=== PATIENT | male | born 1975 | race Caucasian/White ===

== ENCOUNTER 2016-07-29 18:45 | Inpatient (IN) | payer OTHER ==
--- NOTE | ~2016-07-29 | PN ---
Unit #: [id number] #: [id number] Patient: HERMINIA SAAVEDRA [id number] [facility] [address] [place] [address] [id number] MR#: [id number] NAME: HERMINIA SAAVEDRA ROOM: P256 Age: 40 Sex: M Admission Date: 07/29/2016 : 1975 Attending Physician: Juan Gtz M.D. Admitting Physician: Juan Gtz M.D. Primary Care Physician: Primary Care Physician Grace DODD PROGRESS NOTES DATE 07/31/2016 DISCUSSION The patient is calm and pleasant today. He is sleeping well and has been compliant with medications but seems to maintain the delusion that "the [employer] is living by his house." Whatever the case, the patient while exhibiting symptoms of delusional thinking does not appear to be an immediate danger to self or others and should he maintain progress we will likely have to discharge the patient with completion of his 72 hour hold. Dictated by... Juan Gtz M.D. CB/sherri TD: 07/31/2016 13:06 JOB #: [id number] JU PROGRESS NOTES X Juan Gtz MD PROGRESS NOTE
--- NOTE | ~2016-07-29 | HP ---
Unit #: [id number] #: [id number] Patient: GABRIEL SAAVEDRA [id number] [place] [address] [id number] I MR#: [id number] NAME: GABRIEL SAAVEDRA ROOM: P256 Age: 40 Sex: M Admission Date: 07/29/2016 : 1975 Attending Physician: Juan Gtz M.D. Admitting Physician: Juan Gtz M.D. Primary Care Physician: Primary Care Physician No HISTORY AND PHYSICAL HISTORY OF PRESENT ILLNESS Gabriel is a 40 year old admitted to [address] [place] [address] with depression and verbalizing wanting to hurt himself. PAST MEDICAL HISTORY Nothing significant. PAST SURGICAL HISTORY Nothing reported. ALLERGIES No known drug allergies. SOCIAL HISTORY He does not smoke. He has a history of alcohol and marijuana use. FAMILY HISTORY Medically noncontributory. REVIEW OF SYSTEMS CONSTITUTIONAL: No fever or chills. HEENT: Denies any sore throat, ear pain or runny nose. CARDIOVASCULAR: Denies chest pain, irregular heart rhythm or palpitations. CHEST: Denies shortness of breath or cough. No hemoptysis. GASTROINTESTINAL: Denies nausea, vomiting, diarrhea or chronic constipation. ENDOCRINE: Denies history of increased thirst or urination. No recent significant weight loss or gain. GENITOURINARY: Denies dysuria, frequency, or hematuria. SKIN: Denies any rashes. HEMATOLOGIC: Denies history of increased bleeding or bruising. MUSCULOSKELETAL: Denies any hot, swollen joints. No generalized muscle pain. NEUROLOGIC: Denies problems with vision or speech. No frequent, severe headaches. No numbness, tingling or weakness in any extremities. Denies loss of bladder or bowel control. CURRENT MEDICATIONS 1. Zyprexa 5 mg b.i.d., 10 mg q.h.s. 2. Milk of Magnesia p.r.n. 3. Maalox p.r.n. 4. Tylenol p.r.n. Unit #: [id number] #: [id number] Patient: GABRIEL SAAVEDRA PHYSICAL EXAMINATION GENERAL: Alert, well-nourished, in no apparent distress. VITAL SIGNS: Blood pressure 130/68, heart rate 90, respirations 16, temperature 98.6. WEIGHT: 220 pounds. HEIGHT: 6'0". SKIN: Warm and dry without rash or lesion. HEENT: Normocephalic. TMs not viewed. Oral and nasal passages clear. Conjunctivae clear. Pupils equal, round and reactive to light and accommodation. Extraocular movements intact. NECK: Supple without lymphadenopathy or thyromegaly. HEART: Regular rate and rhythm without murmur. LUNGS: Clear. ABDOMEN: Soft, nontender. : Not done. EXTREMITIES: No evidence of cyanosis, clubbing or edema. Moves all extremities without focal deficit. NEUROLOGICAL: Unable to complete extended exam. He does move all extremities without focal deficit. Hand liquor merchant is equal and gait is normal. IMPRESSION Psychiatric admission. RECOMMENDATIONS PSYCHIATRIC: Per psychiatrist. MEDICAL: I see no contraindications to participating in facility's activities. MEDICAL PROGNOSIS Good. MEDICAL CONDITION Stable. Dictated by... Tammy Saul P.A.-C. for Veronica Gonzalez/marie TD: 07/30/2016 23:34 JOB #: [id number] HISTORY AND PHYSICAL X Tammy Saul HISTORY AND PHYSICAL
--- NOTE | ~2016-07-29 | PA ---
Unit #: [id number] #: [id number] Patient: HERMINIA SAAVEDRA [id number] [facility] [address] [place] [address] [id number] I MR#: [id number] NAME: HERMINIA SAAVEDRA ROOM: P256 Age: 40 Sex: M Admission Date: 07/29/2016 : 1975 Date of Assessment: 07/30/2016 Attending Physician: Juan Gtz M.D. Admitting Physician: Juan Gtz M.D. Primary Care Physician: Primary Care Physician No PSYCHIATRIC ASSESSMENT IDENTIFYING INFORMATION The patient is a 40-year-old white male admitted to the [address] [place] [address] with recurrent symptoms of psychosis probably related to a history of bipolar disorder. CHIEF COMPLAINT None given. INFORMANT(S) The patient, reliability is fair. HISTORY OF PRESENT ILLNESS The patient is a 40-year-old white male admitted in transfer from [facility]. He had gone to that facility to "have his blood and urine checked". The patient reports that he has been concerned that his neighbors who are "members of the [employer]" have been spraying his food with ether and other substances as well as formaldehyde. 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 The patient was irritable and loud on admission but is today quite calm and pleasant. During interview his current psychotropic medications include only low dose of Zyprexa 2.[address] but Dr. Chris had discharged the patient on Geodon 60 mg twice daily in August of 2015. The patient denies recent changes of sleep or appetite. He denies abuse of any psychoactive substances. 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 PAST PSYCHIATRIC HISTORY As noted previously. The patient was last admitted to this facility in mid August of 2015 on a mental inquest warrant related to a mixed episode of bipolar disorder with psychotic features. PAST MEDICAL HISTORY Noncontributory. MEDICATIONS Zyprexa. ALLERGIES None reported. FAMILY HISTORY Noncontributory. Unit #: [id number] #: [id number] Patient: HERMINIA SAAVEDRA SOCIAL HISTORY The patient lives alone. 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 He reports no abuse of psychoactive substances. MENTAL STATUS EXAMINATION At this time reveals the patient to be a well-developed, well-nourished heavily and grotesquely tattooed white male, appearing his stated age. He is in no apparent physical distress at the time of examination. He is awake, alert, and oriented in all spheres. His mood is calm. His affect is congruent. Speech is generally relevant and coherent. There are no gross deficits in memory or cognition noted. Intelligence is judged to be in the average range based on fund of knowledge. The patient is cooperative throughout the interview. He is currently denying suicidal or homicidal ideation. He does report positive delusional thinking and paranoid and grandiose delusional thinking as described previously. His judgment and insight appear to be significant impaired. ASSETS AND LIABILITIES ASSETS: Motivation for change LIABILITIES: Lack of resources. DIAGNOSTIC IMPRESSION 1. Bipolar disorder mixed phase with psychotic features. 2. Cannabis use disorder. PSYCHIATRIC PLAN/TREATMENT GOALS The patient remains hospitalized for safety and stabilization. We will increase Zyprexa to a more definitive dose of 5 mg twice daily and further upper titration (1)___ to be considered as well as initiation of a more definitive thymoleptic medication specifically Depakote or lithium. The patient will participate in appropriate alex activities with an estimate length stay in the hospital of five to seven days. Dictated by... Juna Gtz M.D. CB/marie TD: 07/30/2016 20:59 JOB #: [id number] PSYCHIATRIC ASSESSMENT X Juan Gtz MD X PSYCHIATRIC ASSESSMENT
--- NOTE | ~2016-07-29 | DS ---
Unit #: [id number] #: [id number] Patient: HERMINIA SAAVEDRA [id number] [facility] [address] [place] [address] [id number] I MR#: [id number] NAME: HERMINIA SAAVEDRA ROOM: [facility] Age: 40 Sex: M Admission Date: 07/29/2016 : 1975 Discharge Date: 08/01/2016 Attending Physician: Juan Gtz M.D. Primary Care Physician: Primary Care Physician No DISCHARGE SUMMARY REASON FOR ADMISSION The patient is a 40-year-old white male admitted in what appears to have been a state of florid manic psychosis. HOSPITAL COURSE The patient was admitted to the [facility] and placed on suicide precaution. He was continued on Zyprexa with rapid upward titration to a final dose of 5 mg q.a.m. and 10 mg at h.s. The patient's response was rapid and dramatic. He was calm and cooperative when seen by this physician on 07/31/2016 though he persisted in his delusional belief that the [employer] was contaminating his home. By 08/01, however, the patient denied such delusional thinking. He was bright, pleasant, cooperative, and compliant with medications. He requested discharge and was not at that point felt to meet criteria for ongoing involuntary hospitalization. As per his request, discharge was ordered. FINAL DIAGNOSIS Bipolar disorder most recent episode, manic. DISPOSITION ON DISCHARGE The patient was discharged on the following medications: 1. Zyprexa 5 mg 1 p.o. q.a.m., 2 p.o. q.h.s. for mood stabilization and psychosis. DIET AND ACTIVITY No dietary or physical restrictions were placed on the patient at the time of discharge. FOLLOWUP Followup will take place through the auspices of community mental health resources. PROGNOSIS Considered fair. Dictated by... Veronica Wayne TD: 08/01/2016 12:54 JOB #: [id number] Unit #: [id number] #: [id number] Patient: HERMINIA SAAVEDRA DISCHARGE SUMMARY X Juan Gtz MD X DISCHARGE SUMMARY
== END 2016-08-01 16:40 | disposition home or self-care (01) | DRG 885 ==
LOC: P1S 18:45 → P2L 07-30 17:06
DX: F31.64 Bipolar disorder, current episode mixed, severe, with psychotic features (principal); F12.20 Cannabis dependence, uncomplicated